=== PATIENT | male | born 1960 | race African-American/Black ===

== ENCOUNTER 2022-07-27 18:01 | Inpatient (IN) | payer OTHER ==
[2022-07-27 18:54] VITALS: BMI 24.0
[2022-07-27] MEDS ORDERED: NALOXONE HCL (KLOXXADO) 8 MG SPRAY NS PRN (20:49)
[2022-07-27] MEDS ORDERED: NALOXONE HCL 0.4 MG/ML VIAL IM PRN (20:49)
[2022-07-27] MEDS ORDERED: MAG HYDROX/AL HYDROX/SIMETH 30 ML UNIT-DOSE CUP PO PRN (20:49)
[2022-07-27] MEDS ORDERED: DICYCLOMINE HCL 10 MG CAPSULE PO PRN (20:49)
[2022-07-27] MEDS ORDERED: IBUPROFEN 400 MG TABLET (FP) PO PRN (20:49)
[2022-07-27] MEDS ORDERED: ONDANSETRON *ODT* 4 MG TABLET SL PRN (20:49)
[2022-07-27] MEDS ORDERED: BENZONATATE 200 MG CAPSULE PO PRN (20:49)
[2022-07-27] MEDS ORDERED: guaiFENesin 600 MG TABLET.ER (FP) PO PRN (20:49)
[2022-07-27] MEDS ORDERED: LOPERAMIDE HCL 2 MG CAPSULE PO PRN (20:49)
[2022-07-27] MEDS ORDERED: ACETAMINOPHEN 325 MG TABLET (FP) PO PRN (20:49)
[2022-07-27] MEDS ORDERED: POLYETHYLENE GLYCOL (HEALTHYLAX) 3350 17 GM PACKET PO PRN (20:49)
[2022-07-27] MEDS ORDERED: BENZOCAINE/MENTHOL (CHLORASEPTIC ) LOZENGE MM PRN (20:49)
[2022-07-27] MEDS: IBUPROFEN 600 MG TABLET (FP) PO PRN (22:53)
[2022-07-27] MEDS: THIAMINE HCL 100 MG TABLET (FP) PO SCH (22:54)
[2022-07-27] MEDS: MELATONIN 5 MG TABLETS PO SCH (22:54)
[2022-07-27] MEDS: METHOCARBAMOL 500 MG TABLET PO PRN (22:54)
[2022-07-28] MEDS ORDERED: chlordiazePOXIDE HCL 25 MG CAPSULE PO PRN (09:22)
[2022-07-28] MEDS: PRENATAL VITAMINS W/ FOLIC ACID TABLET (FP) PO SCH (10:30)
[2022-07-28] MEDS: chlordiazePOXIDE HCL 25 MG CAPSULE PO SCH ×3 (10:31→22:33)
[2022-07-28 10:59] LABS: HEMATOCRIT 36.3 % (35.4-49); HEMOGLOBIN 12.2 GM/dL (11.7-16.9); MCH 29.6 pg (25.7-33.7); MCHC 33.8 g/dl (32.0-35.9); MEAN CELL VOLUME 87.6 fl (80-96); MEAN PLT VOLUME 8.5 fl (7.5-11.1); PLATELET COUNT 263 10^3/uL (134-434); RBC 4.14 M/mm3 (4.00-5.60); RDW 15.7 % (11.9-15.9); WHITE BLOOD COUNT 3.3 K/mm3 (4.0-10.0)
[2022-07-28 11:30] LABS: CALCIUM 8.8 mg/dL (8.5-10.1)
[2022-07-28 11:31] LABS: ALBUMIN 3.3 g/dl (3.4-5.0); BLOOD UREA NITROGEN 27.3 mg/dL (7-18)
[2022-07-28 11:34] LABS: CREATININE 1.1 mg/dL (0.55-1.3)
[2022-07-28 11:35] LABS: BILIRUBIN,TOTAL 1.6 mg/dL (0.2-1); TOT PROT 6.9 g/dl (6.4-8.2)
[2022-07-28] MEDS: MELATONIN 5 MG TABLETS PO SCH (22:33)
[2022-07-28] MEDS: THIAMINE HCL 100 MG TABLET (FP) PO SCH (22:33)
[2022-07-28] MEDS: BISMUTH SUBSALICYLATE 524 MG/30 ML PO PRN (22:35)
[2022-07-28] MEDS: METHOCARBAMOL 500 MG TABLET PO PRN (22:36)
[2022-07-29] MEDS: chlordiazePOXIDE HCL 25 MG CAPSULE PO SCH ×4 (05:34→22:38)
[2022-07-29] MEDS: IBUPROFEN 600 MG TABLET (FP) PO PRN (05:36)
[2022-07-29] MEDS: METHOCARBAMOL 500 MG TABLET PO PRN (05:36)
[2022-07-29] MEDS: PRENATAL VITAMINS W/ FOLIC ACID TABLET (FP) PO SCH (10:40)
[2022-07-29] MEDS: THIAMINE HCL 100 MG TABLET (FP) PO SCH (22:36)
[2022-07-29] MEDS: MELATONIN 5 MG TABLETS PO SCH (22:36)
[2022-07-30] MEDS: chlordiazePOXIDE HCL 25 MG CAPSULE PO SCH ×4 (05:58→22:37)
[2022-07-30] MEDS: PRENATAL VITAMINS W/ FOLIC ACID TABLET (FP) PO SCH (10:28)
[2022-07-30] MEDS: METHOCARBAMOL 500 MG TABLET PO PRN ×2 (10:31→22:40)
[2022-07-30 12:05] LABS: HEMOGLOBIN 11.2 GM/dL (11.7-16.9); MCH 29.1 pg (25.7-33.7); MCHC 32.9 g/dl (32.0-35.9); MEAN CELL VOLUME 88.4 fl (80-96); PLATELET COUNT 259 10^3/uL (134-434); RBC 3.84 M/mm3 (4.00-5.60); RDW 16.1 % (11.9-15.9); WHITE BLOOD COUNT 3.6 K/mm3 (4.0-10.0)
[2022-07-30 12:11] LABS: CALCIUM 8.6 mg/dL (8.5-10.1)
[2022-07-30 12:12] LABS: BLOOD UREA NITROGEN 16.4 mg/dL (7-18)
[2022-07-30 12:14] LABS: CREATININE 0.8 mg/dL (0.55-1.3)
[2022-07-30 12:16] LABS: BILIRUBIN,TOTAL 0.6 mg/dL (0.2-1); TOT PROT 6.3 g/dl (6.4-8.2)
[2022-07-30] MEDS: BISMUTH SUBSALICYLATE 524 MG/30 ML PO PRN (14:56)
[2022-07-30] MEDS: THIAMINE HCL 100 MG TABLET (FP) PO SCH (22:37)
[2022-07-30] MEDS: MELATONIN 5 MG TABLETS PO SCH (22:37)
[2022-07-31] MEDS ORDERED: chlordiazePOXIDE HCL 10 MG CAPSULE PO PRN
[2022-07-31] MEDS: chlordiazePOXIDE HCL 10 MG CAPSULE PO SCH ×4 (05:19→22:15)
[2022-07-31] MEDS: PRENATAL VITAMINS W/ FOLIC ACID TABLET (FP) PO SCH (10:43)
[2022-07-31] MEDS: MAGNESIUM HYDROX 2400MG/30ML ORAL SUSPENSION 30 ML CUP PO PRN (10:44)
[2022-07-31] MEDS: THIAMINE HCL 100 MG TABLET (FP) PO SCH (22:14)
[2022-07-31] MEDS: METHOCARBAMOL 500 MG TABLET PO PRN (22:15)
[2022-07-31] MEDS: MELATONIN 5 MG TABLETS PO SCH (22:15)
[2022-08-01] MEDS: chlordiazePOXIDE HCL 10 MG CAPSULE PO SCH ×2 (05:27→17:30)
[2022-08-01] MEDS: PRENATAL VITAMINS W/ FOLIC ACID TABLET (FP) PO SCH (10:44)
[2022-08-01] MEDS: MAGNESIUM HYDROX 2400MG/30ML ORAL SUSPENSION 30 ML CUP PO PRN (14:20)
[2022-08-01] MEDS: THIAMINE HCL 100 MG TABLET (FP) PO SCH (22:32)
[2022-08-01] MEDS: MELATONIN 5 MG TABLETS PO SCH (22:32)
[2022-08-02] MEDS ORDERED: chlordiazePOXIDE HCL 10 MG CAPSULE PO ONE (05:00)
[2022-08-02 05:54] VITALS: RESP 17
[2022-08-02 09:26] VITALS: BP 134/90; PULSE 82; TEMP 98.1
[2022-08-02] MEDS: PRENATAL VITAMINS W/ FOLIC ACID TABLET (FP) PO SCH (11:04)
== END 2022-08-02 10:55 | disposition home or self-care (01) | DRG 775 ==
LOC: YASAS 18:01 → UNDOADMIN 22:01 → Y6N 22:01
PROVIDERS: ADMIT Allergy & Immunology; ATTEND Surgery
PROC: HZ2ZZZZ Detoxification Services for Substance Abuse Treatment (ICD-10-PCS; principal; 2022-07-27)
DX: F10.230 Alcohol dependence with withdrawal, uncomplicated (principal); D72.819 Decreased white blood cell count, unspecified; Z87.891 Personal history of nicotine dependence; Z56.0 Unemployment, unspecified; Z59.00 Homelessness unspecified
CPT/HCPCS: 36415; 80053; 83036; 85027; 86780; 87811; 93005; 93010; C9803-CS; U0003; U0005